=== PATIENT | female | born 1985 | race Caucasian/White ===

== ENCOUNTER → 2018-03-16 | Outpatient (CLI) | payer BC ==
[2018-03-16 11:35] LABS: Thyroid Stimulating Hormone 3.04 uIU/mL (0.358-3.74)
== END | disposition home or self-care (01) ==
LOC: LAB 10:39
DX: O99.281 Endocrine, nutritional and metabolic diseases complicating pregnancy, first trimester (principal); E03.9 Hypothyroidism, unspecified; Z3A.01 Less than 8 weeks gestation of pregnancy
CPT/HCPCS: 36415; 84443; 84702